=== PATIENT | male | born 1935 | race Caucasian/White ===

== ENCOUNTER 2017-07-07 07:21 | Inpatient (IN) | payer MEDICARE, BC ==
[2017-07-06 14:52] LABS: BASOPHILS % (AUTO) 0.4 % (0-1); EOSINOPHILS # (AUTO) 0.2 X10'3 (0-0.9); EOSINOPHILS % (AUTO) 2.3 % (0-6); LYMPHOCYTES # (AUTO) 2.5 X10'3 (1.1-4.8); LYMPHOCYTES % (AUTO) 28.3 % (21-51); MEAN CORPUSCULAR HEMOGLOBIN 31.3 PG (27.0-31.0); MEAN CORPUSCULAR HGB CONC 34.1 % (33.0-36.5); MEAN CORPUSCULAR VOLUME 91.7 FL (78-98); MEAN PLATELET VOLUME 9.3 FL (7.4-10.4); MONOCYTES # (AUTO) 0.8 X10'3 (0-0.9); MONOCYTES % (AUTO) 9.6 % (2-12); NEUTROPHILS # (AUTO) 5.2 X10'3 (1.8-7.7); NEUTROPHILS % (AUTO) 59.4 % (42-75); PRE OP HEMATOCRIT 42.8 % (42.0-52.0); PRE OP HEMOGLOBIN 14.6 g/dL (14.0-17.9); PRE OP PLATELET COUNT 249 X10'3 (140-440); RED BLOOD COUNT 4.67 X10'6 (4.70-6.10); RED CELL DISTRIBUTION WIDTH 13.6 % (11.5-14.5)
[2017-07-06 14:55] LABS: CLARITY,URINE CLEAR (Clear); COLOR,URINE YELLOW (Yellow); GLUCOSE, URINE NEGATIVE (Neg); KETONES,URINE NEGATIVE (Neg); LEUKOCYTE ESTERASE ,URINE NEGATIVE (Neg); NITRITES, URINE NEGATIVE (Neg); OCCULT BLOOD,URINE NEGATIVE (Neg); PROTEIN,URINE NEGATIVE (Neg); UROBILINOGEN,URINE 0.2 E.U/dL (0.2-1.0)
[2017-07-06 14:58] LABS: UA COLLECTION TYPE CLN CATCH MIDSTREAM
[2017-07-06 15:06] LABS: ALBUMIN 3.5 G/DL (3.4-5.0); ALBUMIN/GLOBULIN RATIO 0.8 (1.1-1.5); ALKALINE PHOSPHATASE 105 IU/L (46-116); BLOOD UREA NITROGEN 21 MG/DL (7-18); BUN/CREATININE RATIO 19.6 (5.4-32.0); CALCIUM 9.3 MG/DL (8.5-10.1); CHLORIDE 106 MMOL/L (99-107); CREATININE 1.07 MG/DL (0.60-1.10); PRE OP ALT 30 U/L (30-65); PRE OP ANION GAP 8 (8-16); PRE OP AST 21 U/L (10-37); PRE OP BILIRUB, TOTAL 0.3 MG/DL (0.0-1.0); PRE OP GLUCOSE 115 MG/DL (70-104); PRE OP POTASSIUM 4.4 MMOL/L (3.4-5.1); PRE OP SODIUM 143 MMOL/L (135-145); TOTAL CARBON DIOXIDE 29.5 MMOL/L (24-32); TOTAL PROTEIN 7.8 G/DL (6.4-8.2); eGFR 67 ML/MIN
[~2017-07-07] VITALS: Ht 182.9 cm; Wt 82.0 kg
[2017-07-07] VITALS (17 sets, daily range): BP systolic 120–150; BP diastolic 71–88
[~2017-07-07 07:21] MED LIST: DOCUMENT DATE & TIME OF BETA-BLOCKER PO ONE; MELO-100 PO; METO-539 PO; MULT-1154 PO; TRIA0.252 PO; acetaminophen 325mg tablet PO ONE; cefazolin/dext.iso 2gm/50ml 50 ML IV ONE; famotidine 20mg tablet PO ONE; gabapentin 300mg capsule PO ONE; metoclopramide 5 mg/ml inj IV ONE; oxyCODONE SR 10mg (sust. release) tab PO ONE; ringers solution, lacted 1,000 ML IV SCH; tranexamic acid inj. 1,000 MG in normal saline 100ml IV soln 90 ML IV ONE; vancomycin inj 1,500 MG in normal saline 300ml IV soln IV ONE
[2017-07-07] MEDS ORDERED: ketorolac trometh. 30mg/ml inj. ONE (07:57)
[2017-07-07] MEDS ORDERED: ceFAZolin 1000mg inj ONE (07:57)
[2017-07-07] MEDS ORDERED: BUPIVAcaine 0.5% inj/PF 30 ml vial ONE (07:57)
[2017-07-07] MEDS ORDERED: vancomycin 1,000mg inj ONE (07:57)
[2017-07-07] MEDS ORDERED: metoclopramide 10mg tablet PO ONE (08:40)
[2017-07-07] MEDS ORDERED: cloNIDine hcl/PF 100mcg/ml inj ONE (08:50)
[2017-07-07] MEDS ORDERED: ringers solution, lacted 1,000 ML IV SCH (09:23)
[2017-07-07] MEDS ORDERED: meperidine/PF 50mg/ml syringe IV PRN ×3 (09:25)
[2017-07-07] MEDS ORDERED: morphine 4 MG/ML inj SYRINge IV PRN ×2 (09:25)
[2017-07-07] MEDS ORDERED: ondansetron/PF 4mg/2ml inj IV PRN ×2 (09:25→12:35)
[2017-07-07] MEDS ORDERED: proCHLORperazine 10 MG/2 ml inj IV PRN (09:25)
[2017-07-07] MEDS ORDERED: fentaNYL/PF 50MCG/1 ML 2ML syringe ONE (09:45)
[2017-07-07] MEDS ORDERED: MIDAZolam 5mg/5ml vial ONE (09:50)
[2017-07-07] MEDS ORDERED: ePHEDrine 50MG/ML INJ. ONE (10:01)
[2017-07-07] MEDS ORDERED: albumin (Human) 5% 250ml 250 ML IV ONE (10:11)
[2017-07-07] MEDS ORDERED: MORPHINE SULFATE/PF 0.5 MG/ML 10ML AMPUL ONE (10:24)
[2017-07-07] MEDS ORDERED: ROPIVAcaine 0.5% (5mg/ml) 30ml vial ONE (12:12)
[2017-07-07] MEDS ORDERED: bisacodyl 10mg suppository rectal RC PRN (12:35)
[2017-07-07] MEDS ORDERED: acetaminophen 325mg tablet PO PRN (12:35)
[2017-07-07] MEDS ORDERED: magnesium hydroxide 30ml (MOM) UD suspension PO PRN (12:35)
[2017-07-07] MEDS ORDERED: diphenhydrAMINE 25mg capsule PO PRN ×2 (12:35)
[2017-07-07] MEDS ORDERED: tranexamic acid inj. 820 MG in normal saline 100ml IV soln 100 ML IV ONE (14:30)
[2017-07-07] MEDS: acetaminophen 325mg tablet PO SCH ×2 (15:12→20:10)
[2017-07-07] MEDS: gabapentin 300mg capsule PO SCH ×2 (15:12→20:10)
[2017-07-07] MEDS: cefazolin 1gm/NS 100mL 100 ML IV SCH ×2 (15:13→23:55)
[2017-07-07] MEDS: potassium cl 20mEq in 1/2 NS 1,000 ML IV SCH ×2 (15:13→20:15)
[2017-07-07] MEDS: oxyCODONE IR 5mg (immed. release) tablet PO PRN ×3 (15:13→23:55)
[2017-07-07] MEDS ORDERED: vancomycin/NS 1 GM ADD-VANTAGE 250 ML IV SCH (20:00)
[2017-07-07] MEDS: celeCOXIB 100mg capsule PO SCH (20:11)
[2017-07-07] MEDS: sennosides 8.6mg tablet PO SCH (20:11)
[2017-07-08] MEDS: acetaminophen 325mg tablet PO SCH ×4 (01:53→20:18)
[2017-07-08 02:00] VITALS: BP 134/65
[2017-07-08] MEDS: potassium cl 20mEq in 1/2 NS 1,000 ML IV SCH ×3 (05:18→20:34)
[2017-07-08] MEDS: oxyCODONE IR 5mg (immed. release) tablet PO PRN ×3 (05:19→20:17)
[2017-07-08 05:36] LABS: BASOPHILS % (AUTO) 0.3 % (0-1); EOSINOPHILS # (AUTO) 0.1 X10'3 (0-0.9); EOSINOPHILS % (AUTO) 1.2 % (0-6); HEMATOCRIT 35.5 % (42.0-52.0); HEMOGLOBIN 12.1 g/dl (14.0-17.9); LYMPHOCYTES # (AUTO) 1.7 X10'3 (1.1-4.8); LYMPHOCYTES % (AUTO) 14.5 % (21-51); MEAN CORPUSCULAR HEMOGLOBIN 31.7 PG (27.0-31.0); MEAN CORPUSCULAR HGB CONC 34.1 % (33.0-36.5); MEAN CORPUSCULAR VOLUME 92.8 FL (78-98); MEAN PLATELET VOLUME 9.7 FL (7.4-10.4); MONOCYTES # (AUTO) 1.2 X10'3 (0-0.9); MONOCYTES % (AUTO) 10.3 % (2-12); NEUTROPHILS # (AUTO) 8.9 X10'3 (1.8-7.7); NEUTROPHILS % (AUTO) 73.7 % (42-75); PLATELET COUNT 199 X10'3 (140-440); RED BLOOD COUNT 3.83 X10'6 (4.70-6.10); RED CELL DISTRIBUTION WIDTH 13.5 % (11.5-14.5); WHITE BLOOD COUNT 12.1 X10'3 (4.5-11.0)
[2017-07-08 06:00] VITALS: BP 131/70
[2017-07-08] MEDS ORDERED: temazepam 15mg capsule PO PRN (06:15)
[2017-07-08 06:21] LABS: ANION GAP 8 (8-16); CHLORIDE 109 MMOL/L (99-107); POTASSIUM 4.8 MMOL/L (3.5-5.1); SODIUM 141 MMOL/L (135-145); TOTAL CARBON DIOXIDE 24.3 MMOL/L (24-32)
[2017-07-08 07:07] VITALS: BP 169/84
[2017-07-08] MEDS: celeCOXIB 100mg capsule PO SCH ×2 (07:44→20:17)
[2017-07-08] MEDS: gabapentin 300mg capsule PO SCH ×3 (07:44→20:17)
[2017-07-08] MEDS: multivitamins, therapeutics tablet PO SCH (07:45)
[2017-07-08] MEDS: enoxaparin 40mg/0.4ml syringe SQ SCH (07:47)
[2017-07-08 18:00] VITALS: BP 151/79
[2017-07-08] MEDS: sennosides 8.6mg tablet PO SCH (20:18)
[2017-07-08] MEDS ORDERED: metoprolol succinate 25mg (24-HOUR) SR. Tablet PO SCH (21:00)
[2017-07-08 22:00] VITALS: BP 121/69
[2017-07-09] MEDS: acetaminophen 325mg tablet PO SCH ×2 (02:00→09:36)
[2017-07-09] MEDS: oxyCODONE IR 5mg (immed. release) tablet PO PRN ×2 (03:20→09:18)
[2017-07-09] MEDS: potassium cl 20mEq in 1/2 NS 1,000 ML IV SCH (04:34)
[2017-07-09 06:00] VITALS: BP 155/81
[2017-07-09] MEDS ORDERED: WALKERFR (06:38)
[2017-07-09 06:50] LABS: BASOPHILS # (AUTO) 0.1 X10'3 (0-0.2); BASOPHILS % (AUTO) 0.5 % (0-1); EOSINOPHILS # (AUTO) 0.4 X10'3 (0-0.9); EOSINOPHILS % (AUTO) 3.2 % (0-6); HEMATOCRIT 35.5 % (42.0-52.0); HEMOGLOBIN 12.3 g/dl (14.0-17.9); LYMPHOCYTES # (AUTO) 4.3 X10'3 (1.1-4.8); LYMPHOCYTES % (AUTO) 36.1 % (21-51); MEAN CORPUSCULAR HEMOGLOBIN 31.7 PG (27.0-31.0); MEAN CORPUSCULAR HGB CONC 34.6 % (33.0-36.5); MEAN CORPUSCULAR VOLUME 91.6 FL (78-98); MONOCYTES # (AUTO) 1.6 X10'3 (0-0.9); MONOCYTES % (AUTO) 13.8 % (2-12); NEUTROPHILS # (AUTO) 5.5 X10'3 (1.8-7.7); NEUTROPHILS % (AUTO) 46.4 % (42-75); PLATELET COUNT 211 X10'3 (140-440); RED BLOOD COUNT 3.87 X10'6 (4.70-6.10); RED CELL DISTRIBUTION WIDTH 13.6 % (11.5-14.5); WHITE BLOOD COUNT 11.8 X10'3 (4.5-11.0)
[2017-07-09] MEDS: gabapentin 300mg capsule PO SCH (09:35)
[2017-07-09] MEDS: multivitamins, therapeutics tablet PO SCH (09:35)
[2017-07-09] MEDS: celeCOXIB 100mg capsule PO SCH (09:36)
[2017-07-09] MEDS: enoxaparin 40mg/0.4ml syringe SQ SCH (09:37)
[2017-07-09 10:00] VITALS: BP 161/62
[2017-07-09] MEDS ORDERED: acetaminophen 325mg tablet PO PRN (12:35)
== END 2017-07-09 10:50 | disposition home or self-care (01) | DRG 470 ==
LOC: PAS IN 07:21 → EDSTATUS 08:45 → ORTHO 4S 14:10
PROVIDERS: ADMIT Orthopaedic Surgery; ATTEND Orthopaedic Surgery
PROC: 3E0T3BZ Introduction of Anesthetic Agent into Peripheral Nerves and Plexi, Percutaneous Approach (ICD-10-PCS; 2017-07-07)
PROC: 8E0YXCZ Robotic Assisted Procedure of Lower Extremity (ICD-10-PCS; 2017-07-07)
PROC: 0SRC069 Replacement of Right Knee Joint with Oxidized Zirconium on Polyethylene Synthetic Substitute, Cemented, Open Approach (ICD-10-PCS; principal; 2017-07-07 09:46)
DX: M17.11 Unilateral primary osteoarthritis, right knee (principal); D62 Acute posthemorrhagic anemia; I10 Essential (primary) hypertension; Z79.899 Other long term (current) drug therapy
CPT/HCPCS: 36415; 80051; 80053; 81003; 85025; 87070; 97110; 97116; 97162; 97530; A4615; A6455; A7000; C1713; C1758; C1776; C9250; J0690; J0735; J1650; J1885; J2250; J2274; J2795; J3010; J3370; J3490; J7030; J7120; J8597; P9045; Q0163